=== PATIENT | male | born 1950 | race Caucasian/White ===

== ENCOUNTER 2018-05-21 17:26 | Emergency (ER) | payer OTHER ==
[2018-05-21] MEDS ORDERED: NS 1,000 ML IV ONE (17:40)
--- NOTE | 2018-05-21 17:45 | EDPHY ---
H & P Time Seen by Provider: 05/21/18 17:36 HPI/ROS: CHIEF COMPLAINT: Pre syncope HISTORY OF PRESENT ILLNESS: The patient is a 68-year-old man who comes to the emergency department complaining of a pre syncopal event with his family. He states that he has not had much to eat or drink today and that he was sitting in the hot sun. He began to feel lightheaded and his thought he looked pale. She helped lower him to the ground and called 911. He did not have any focal weakness. No seizure-like activity. No trauma. No recent fevers or infections. No headache. No chest pain. He did have some palpitations. No shortness of breath. He felt better after lying flat for minute or 2. When paramedics arrived his blood pressure is 100/60. He was given a L of IV fluids. EKG was done and interpreted as normal. Patient states nothing like this has ever happened before. No nausea vomiting or diarrhea recently. No drug or alcohol use. Severity: Moderate Modifying factors: Position REVIEW OF SYSTEMS: Constitutional: denies: chills, fever, recent illness, recent injury EENTM: denies: blurred vision, double vision, nose congestion Respiratory: denies: cough, shortness of breath Cardiac: See HPI, Gastrointestinal/Abdominal: denies: abdominal pain, diarrhea, nausea, vomiting, blood streaked stools Genitourinary: denies: dysuria, frequency, hematuria, pain Musculoskeletal: denies: joint pain, muscle pain Skin: denies: lesions, rash, jaundice, bruising Neurological: denies: headache, numbness, paresthesia, tingling, dizziness, weakness Hematologic/Lymphatic: denies: blood clots, easy bleeding, easy bruising Immunologic/allergic: denies: HIV/AIDS, transplant EXAM: GENERAL: Well-appearing, well-nourished and in no acute distress. HEAD: Atraumatic, normocephalic. EYES: Pupils equal round and reactive to light, extraocular movements intact, sclera anicteric, conjunctiva are normal. ENT: TMs normal, nares patent, oropharynx clear without exudates. Moist mucous membranes. NECK: Normal range of motion, supple without lymphadenopathy or JVD. LUNGS: Breath sounds clear to auscultation bilaterally and equal. No wheezes rales or rhonchi. HEART: Regular rate and rhythm without murmurs, rubs or gallops. ABDOMEN: Soft, nontender, normoactive bowel sounds. No guarding, no rebound. No masses appreciated. BACK: No CVA tenderness, no spinal tenderness, step-offs or deformities EXTREMITIES: Normal range of motion, no pitting or edema. No clubbing or cyanosis. NEUROLOGICAL: Cranial nerves II through XII grossly intact. Normal speech, normal gait. 5/5 strength, normal movement in all extremities, normal sensation , normal reflexes PSYCH: Normal mood, normal affect. SKIN: Warm, dry, normal turgor, no visible rashes or lesions. Source: Patient, Family, EMS Exam Limitations: No limitations - Medical/Surgical History Hx Asthma: No Hx Chronic Respiratory Disease: No Hx Diabetes: No Hx Cardiac Disease: No Hx Renal Disease: No Hx Cirrhosis: No Hx Alcoholism: No - Family History Significant Family History: No pertinent family hx - Social History Smoking Status: Never smoked Alcohol Use: None Drug Use: None Constitutional: Initial Vital Signs Heart Rate 70 05/21/18 17:46 Respiratory Rate 16 05/21/18 17:46 Blood Pressure 120/72 05/21/18 17:46 O2 Sat (%) 99 05/21/18 17:46 O2 Delivery Mode Room Air O2 (L/minute) 2 Allergies/Adverse Reactions: No Known Drug Allergies Allergy (Verified 05/21/18 17:49) Medical Decision Making - Diagnostics EKG Interpretation: An EKG obtained and was read and documented in trace view. Please see trace view for full reading and report. Sinus rhythm, no acute ischemic changes Imaging: Discussed imaging studies w/ call center supervisor Radiologist ED Course/Re-evaluation: The patient feels completely better. We discussed follow-up with cardiology. He does not wish to stay in the hospital. No arrhythmias a seen on the monitor. No chest pain. He is ambulating without difficulty. He is tolerating oral fluids. We discussed indications for returning. Differential Diagnosis: Partial list of the Differential diagnosis considered include but were not limited to; dehydration, presyncope, syncope, arrhythmia and although unlikely based on the history and physical exam, I also considered acute coronary disease , PE, infection, head trauma. I discussed these differential diagnoses and the plan with the patient as well as the usual and expected course. The patient understands that the diagnosis is provisional and that in medicine we are not always correct and that further workup is often warranted. Usual and customary warnings were given. All of the patient's questions were answered. The patient was instructed to return to the emergency department should the symptoms at all worsen or return, otherwise to followup with the physician as we discussed. - Data Points Laboratory Results: Laboratory Results 05/21/18 17:30 18 17:30 18 18 05/21/18 17:35 17:30 17:30 WBC 7.94 10^3/uL 10^3/uL (3.80-9.50) RBC 4.46 10^6/uL 10^6/uL (4.40-6.38) Hgb 14.0 g/dL g/dL (13.7-17.5) Hct 40.1 % % (40.0-51.0) MCV 89.9 fL fL (81.5-99.8) MCH 31.4 pg pg (27.9-34.1) MCHC 34.9 g/dL g/dL (32.4-36.7) RDW 13.2 % % (11.5-15.2) Plt Count 204 10^3/uL 10^3/uL (150-400) MPV 11.1 fL fL (8.7-11.7) Neut % (Auto) 58.1 % % (39.3-74.2) Lymph % (Auto) 32.7 % % (15.0-45.0) [place] % (Auto) 8.2 % % (4.5-13.0) Eos % (Auto) 0.4 % L % (0.6-7.6) Baso % (Auto) 0.3 % % (0.3-1.7) Nucleat RBC Rel Count 0.0 % % (0.0-0.2) Absolute Neuts (auto) 4.62 10^3/uL 10^3/uL (1.70-6.50) Absolute Lymphs (auto) 2.60 10^3/uL 10^3/uL (1.00-3.00) Absolute Monos (auto) 0.65 10^3/uL 10^3/uL (0.30-0.80) Absolute Eos (auto) 0.03 10^3/uL 10^3/uL (0.03-0.40) Absolute Basos (auto) 0.02 10^3/uL 10^3/uL (0.02-0.10) Absolute Nucleated RBC 0.00 10^3/uL 10^3/uL (0-0.01) Immature Gran % 0.3 % % (0.0-1.1) Immature Gran # 0.02 10^3/uL 10^3/uL (0.00-0.10) Sodium 136 mEq/L mEq/L (135-145) Potassium 3.7 mEq/L mEq/L (3.3-5.0) Chloride 104 mEq/L mEq/L (97-110) Carbon Dioxide 20 mEq/l L mEq/l (22-31) Anion Gap 12 mEq/L mEq/L (8-16) BUN 23 mg/dL mg/dL (7-23) Creatinine 0.9 mg/dL mg/dL (0.7-1.3) Estimated GFR > 60 Glucose 114 mg/dL H mg/dL (70-100) Calcium 9.6 mg/dL mg/dL (8.5-10.4) POC Troponin I 0.00 ng/mL ng/mL (0.00-0.08) Medications Given: Discontinued Medications Sodium Chloride (Ns) 1,000 mls @ 0 mls/hr IV EDNOW ONE; Wide Open PRN Reason: Protocol Stop: 05/21/18 17:41 Last Admin: 05/21/18 17:50 Dose: 1,000 mls Point of Care Test Results: Chemistry 05/21/18 17:35 POC Troponin I 0.00 ng/mL ng/mL (0.00-0.08) Departure - Departure Disposition: Home, Routine, Self-Care Clinical Impression: Pre-syncope, Dehydration Condition: Fair Instructions: Near Syncope (ED) Referrals: Jailyn Nick MD [Non Staff Provider (MD)] - As per Instructions Patient,NotPresent [Unknown] - As per Instructions Jewel Rao MD [Medical Doctor] - 5-7 days, call for appt.
[2018-05-21 17:47] LABS: PLATELET COUNT 204 10^3/uL (150-400)
--- NOTE | 2018-05-21 18:32 | CPEKG ---
Test Reason : OPEN Blood Pressure : / mmHG Vent. Rate : 071 BPM Atrial Rate : 070 BPM P-R Int : 150 ms QRS Dur : 082 ms QT Int : 370 ms P-R-T Axes : 080 -12 060 degrees QTc Int : 403 ms Sinus rhythm Low voltage, extremity leads Confirmed by Oliverio Gaytan ([id number]) on 05/21/2018 6:32:00 PM Referred By: Confirmed By:Oliverio Gaytan
[2018-05-21 18:57] VITALS: BP 117/77
== END 2018-05-21 19:05 | disposition home or self-care (01) ==
DX: R55 Syncope and collapse (principal); E86.9 Volume depletion, unspecified
CPT/HCPCS: 84484-PO